=== PATIENT | female | born 1980 | race Caucasian/White ===

== ENCOUNTER 2019-03-09 17:36 | Emergency (ER) | payer OTHER ==
[2019-03-09] MEDS ORDERED: DEXAMETHASONE 10 MG/ML VIAL PO STA (19:02)
[2019-03-09] MEDS ORDERED: LIDOCAINE TOPICAL 4% 50 ML BOTTLE MM STA (19:02)
[2019-03-09] MEDS ORDERED: MAG HYDROX/AL HYDROX/SIMETH 30 ML UDC PO STA (19:02)
[2019-03-09] MEDS ORDERED: CHERRY SYRUP 10 ML UDC PO ONE (19:02)
--- NOTE | 2019-03-09 19:05 | ED Physician Documentation ---
History of Present Illness - Stated complaint Stated Complaint: V/MOUTH INFLAMMATION - Chief complaint Chief Complaint: General - History obtained from History obtained from: Patient - History of Present Illness Timing: Other (Starting about 5 days ago she had vomiting and stomach cramping. On that day she had a fever. That has since defervesced but she feels feels like the top of her mouth and throat is swollen is having difficulty eating and drinking because of it. She is fatigued but denies fevers or chills at this point. She is congested but no cough. No possibility of .) Review of Systems Constitutional: reports: Myalgias, Fatigue. 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: Breast reduction - Present Medications Home Medications: Ambulatory Orders Medication Instructions Recorded Confirmed Hydrocodone/Acetaminophen 1 - 2 each PO Q6H PRN #10 tablet 03/09/19 [Hydrocodon-Acetaminophen 5-325] predniSONE [Deltasone] 60 mg PO DAILY 5 Days tablet 03/09/19 - Allergies Allergies/Adverse Reactions: Allergies Allergy/AdvReac Type Severity Reaction Status Date / Time codeine AdvReac Hallucinati Verified 03/09/19 17:56 ons - Social History Does the pt smoke?: Yes Smoking Status: Current every day smoker Does the pt drink ETOH?: Yes Does the pt have substance abuse?: No - Immunizations Immunizations are current?: Yes PD ED PE NORMAL - Vitals Vital signs reviewed: Yes - General General: Alert and oriented X 3, No acute distress - HEENT HEENT: PERRL, EOMI, Ears normal - Neck Neck: Other (She has tonsillar swelling and mild redness of the palate. No obvious angioedema. No exudates. She does have significant anterior cervical adenopathy bilaterally.) - Cardiac Cardiac: RRR, No murmur - Respiratory Respiratory: No respiratory distress, Clear bilaterally - Abdomen Abdomen: Non tender - Derm Derm: No rash - Neuro Neuro: Alert and oriented X 3, Normal speech Results - Vitals Vitals: Vital Signs - 24 hr 03/09/19 17:49 Temperature 36.8 C Heart Rate 82 Respiratory 16 Rate Blood Pressure 116/80 O2 Saturation 100 Oxygen O2 Source Room air - Labs Labs: Laboratory Tests 03/09/19 03/09/19 03/09/19 19:16 19:17 19:17 WBC 7.8 RBC 4.06 L Hgb 11.9 L Hct 36.9 L MCV 90.9 MCH 29.3 MCHC 32.2 RDW 13.4 Plt Count 220 MPV 9.0 Neut # (Auto) 4.8 Lymph # (Auto) 2.0 [place] # (Auto) 0.8 Eos # (Auto) 0.2 Baso # (Auto) 0.1 Absolute Nucleated RBC 0.00 Nucleated RBC % 0.0 Sodium Potassium Chloride Carbon Dioxide Anion Gap BUN Creatinine Estimated GFR (MDRD) Glucose Calcium Total Bilirubin AST ALT Alkaline Phosphatase Total Protein Albumin Globulin Albumin/Globulin Ratio Lipase Infectious [place] Assay NEGATIVE Group A Strep Rapid Negative 03/09/19 19:17 WBC RBC Hgb Hct MCV MCH MCHC RDW Plt Count MPV Neut # (Auto) Lymph # (Auto) [place] # (Auto) Eos # (Auto) Baso # (Auto) Absolute Nucleated RBC Nucleated RBC % Sodium 141 Potassium 4.3 Chloride 106 Carbon Dioxide 24 Anion Gap 11.0 BUN 12 Creatinine 0.9 Estimated GFR (MDRD) 70 L Glucose 99 Calcium 9.1 Total Bilirubin 0.4 AST 17 ALT 17 Alkaline Phosphatase 72 Total Protein 7.0 Albumin 3.9 Globulin 3.1 Albumin/Globulin Ratio 1.3 Lipase 34 Infectious [place] Assay Group A Strep Rapid PD MEDICAL DECISION MAKING - ED course ED course: This is a 38-year-old woman who presents with viral pharyngitis, strep and mono screens were negative and she was feeling better after a GI cocktail. There is no evidence of airway compromise. No evidence of peritonsillar abscess. Departure - Departure Disposition: 01 Home, Self Care Clinical Impression: Viral pharyngitis Condition: Good Record reviewed to determine appropriate education?: Yes Instructions: ED Pharyngitis Viral Report Pending Prescriptions: Hydrocodone/Acetaminophen [Hydrocodon-Acetaminophen 5-325] 1 - 2 each PO Q6H PRN #10 tablet PRN Reason: pain predniSONE [Deltasone] 60 mg PO DAILY 5 Days tablet Comments: I suspect she will be better over the next couple of days, return for any new or worsening symptoms or if not better in that timeframe, or follow-up with your doctor in a few days if not better.
[2019-03-09 19:25] LABS: BASOPHILS # (AUTO) 0.1 10^3/uL (0.0-0.1); BASOPHILS % (AUTO) 0.6 %; EOSINOPHILS # (AUTO) 0.2 10^3/uL (0.0-0.7); EOSINOPHILS % (AUTO) 2.3 %; HGB - HEMOGLOBIN 11.9 g/dL (12.0-16.0); MEAN CORPUSCULAR HEMOGLOBIN 29.3 pg (27.0-31.0); MEAN CORPUSCULAR HGB CONC 32.2 g/dL (32.0-36.0); MEAN CORPUSCULAR VOLUME 90.9 fL (81.0-99.0); MONOCYTES # (AUTO) 0.8 10^3/uL (0.0-1.0); MONOCYTES % (AUTO) 10.2 %; NEUTROPHILS # (AUTO) 4.8 10^3/uL (1.5-6.6); NEUTROPHILS % (AUTO) 61.4 %; PLT - PLATELET COUNT 220 10^3/uL (130-450); RED BLOOD COUNT 4.06 10^6/uL (4.20-5.40); RED CELL DISTRIBUTION WIDTH 13.4 % (12.0-15.0); WHITE BLOOD COUNT 7.8 x10^3/uL (4.8-10.8)
[2019-03-09 19:44] LABS: ALBUMIN 3.9 g/dL (3.2-5.5); ALBUMIN/GLOBULIN RATIO 1.3 (1.0-2.2); BILIRUBIN,TOTAL 0.4 mg/dL (0.2-1.0); CALCIUM 9.1 mg/dL (8.5-10.3); CREATININE 0.9 mg/dL (0.4-1.0)
[2019-03-09] MEDS ORDERED: HYDROcod/ACET 5/325 Prepack 4 PO STA (20:12)
[2019-03-09 20:16] VITALS: BP 117/83
== END 2019-03-09 20:21 | disposition home or self-care (01) ==
LOC: ED 17:36
DX: J02.8 Acute pharyngitis due to other specified organisms (principal); F17.200 Nicotine dependence, unspecified, uncomplicated
CPT/HCPCS: 36415; 80053; 83690; 85025; 86308; 87070; 87430; 99283; 99284; A9270

== ENCOUNTER 2019-11-23 15:48 | Outpatient (CLI) | payer OTHER | END 2019-11-23 15:49 | disposition home or self-care (01) | LOC: COV 15:48 | PROVIDERS: ATTEND Family Medicine | DX: R50.9 Fever, unspecified (principal); R05 Cough; R06.2 Wheezing; M79.10 Myalgia, unspecified site | CPT/HCPCS: 81599 ==

== ENCOUNTER 2020-05-22 09:49 | Emergency (ER) | payer MEDICAID ==
--- NOTE | 2020-05-22 10:39 | ED Physician Documentation ---
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 She reports 3 days of heavy bleeding and cramping followed by 4 days of lessening symptoms. She had an appointment to go in and see WATER PURIFIER and this appointment was rescheduled for time that she could not go. She is come today after calling her clinic this morning when her menses began and she has been having heavy bleeding going through about 1 pad per hour. She states that she does get lightheaded and dizzy with her menses and this usually resolves and she is not having pain or bleeding between menses. 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: Tubal ligation, Breast reduction - Present Medications Home Medications: Ambulatory Orders Medication Instructions Recorded Confirmed Hydrocodone/Acetaminophen 1 - 2 each PO Q6H PRN #10 tablet 03/09/19 [Hydrocodon-Acetaminophen 5-325] predniSONE [Deltasone] 60 mg PO DAILY 5 Days tablet 03/09/19 Sulfamethox/Trimeth 800/160 1 each PO BID #10 tablet 05/22/20 [Bactrim Ds] - Allergies Allergies/Adverse Reactions: Allergies Allergy/AdvReac Type Severity Reaction Status Date / Time codeine AdvReac Hallucinati Verified 05/22/20 09:57 ons - Social History Does the pt smoke?: Yes Smoking Status: Current every day smoker Does the pt drink ETOH?: No Does the pt have substance abuse?: No Substance Use and Type: Marijuana - Immunizations Immunizations are current?: Yes PD ED PE NORMAL - Vitals Vital signs reviewed: Yes (normal ) - General General: Alert and oriented X 3, No acute distress, Well developed/nourished - HEENT HEENT: Atraumatic, PERRL, EOMI - Neck Neck: Supple, no meningeal sign, No bony TTP - Cardiac Cardiac: RRR, No murmur - Respiratory Respiratory: No respiratory distress, Clear bilaterally - Abdomen Abdomen: Soft, Non tender - Back Back: No CVA TTP, No spinal TTP - Derm Derm: Normal color, Warm and dry, No rash - Extremities Extremities: No deformity, No edema - Neuro Neuro: Alert and oriented X 3, No motor deficit, No sensory deficit, Normal speech Eye Opening: Spontaneous Motor: Obeys Commands Verbal: Oriented GCS Score: 15 - Psych Psych: Normal mood, Normal affect Results - Vitals Vitals: Vital Signs - 24 hr 05/22/20 05/22/20 09:54 10:18 Temperature 36.5 C Heart Rate 85 71 Respiratory 16 16 Rate Blood Pressure 115/72 112/79 O2 Saturation 100 100 Oxygen O2 Source Room air - Labs Labs: Laboratory Tests 05/22/20 05/22/20 05/22/20 10:51 10:51 11:05 WBC 5.2 RBC 3.93 L Hgb 10.0 L Hct 32.8 L MCV 83.5 MCH 25.4 L MCHC 30.5 L RDW 15.9 H Plt Count 237 MPV 8.8 Neut # (Auto) 3.5 Lymph # (Auto) 1.1 L [place] # (Auto) 0.5 Eos # (Auto) 0.1 Baso # (Auto) 0.0 Absolute Nucleated RBC 0.00 Nucleated RBC % 0.0 Sodium 138 Potassium 3.8 Chloride 103 Carbon Dioxide 24 Anion Gap 11.0 BUN 10 Creatinine 0.9 Estimated GFR (MDRD) 69 L Glucose 105 H Calcium 8.7 Total Bilirubin 0.5 AST 12 ALT 11 Alkaline Phosphatase 59 Total Protein 7.2 Albumin 4.0 Globulin 3.2 Albumin/Globulin Ratio 1.3 Lipase 53 H Urine Color YELLOW Urine Clarity HAZY Urine pH 7.5 Ur Specific [place] 1.015 Urine Protein NEGATIVE Urine Glucose (UA) NEGATIVE Urine Ketones NEGATIVE Urine Occult Blood SMALL H Urine Nitrite POSITIVE H Urine Bilirubin NEGATIVE Urine Urobilinogen 0.2 (NORMAL) Ur Leukocyte Esterase MODERATE H Urine RBC 6-10 H Urine WBC >25 H Ur Squamous Epith Cells FEW Squamous Urine Bacteria Many H Urine Mucus Moderate Strands Ur Microscopic Review INDICATED Urine Culture Comments INDICATED Urine HCG, Qual NEGATIVE PD MEDICAL DECISION MAKING - ED course Complexity details: reviewed results, re-evaluated patient, considered differential, d/w patient ED course: 39-year-old female with dysfunctional uterine bleeding has excessive cramping and bleeding today and this is typical for her and she is found to be mildly anemic. I discussed findings with the patient and she will follow-up with WATER PURIFIER for further recommendations. Her urinalysis appears infected and we will start her on Septra for 5 days. Departure - Departure Disposition: 01 Home, Self Care Clinical Impression: Dysfunctional uterine bleeding UTI (urinary tract infection) Qualifiers: Urinary tract infection type: acute cystitis Hematuria presence: with hematuria Qualified Code(s): N30.01 - Acute cystitis with hematuria Condition: Stable Instructions: ED Bleed Irregular Vaginal, ED UTI Cystitis Female Follow-Up: MOIZ PALACIOS PA-C [Primary Care Provider] - Prescriptions: Sulfamethox/Trimeth 800/160 [Bactrim Ds] 1 each PO BID #10 tablet
[2020-05-22 10:58] LABS: BASOPHILS % (AUTO) 0.6 %; EOSINOPHILS # (AUTO) 0.1 10^3/uL (0.0-0.7); LYMPHOCYTES # (AUTO) 1.1 10^3/uL (1.5-3.5); LYMPHOCYTES % (AUTO) 21.7 %; MEAN CORPUSCULAR HEMOGLOBIN 25.4 pg (27.0-31.0); MEAN CORPUSCULAR HGB CONC 30.5 g/dL (32.0-36.0); MEAN CORPUSCULAR VOLUME 83.5 fL (81.0-99.0); MEAN PLATELET VOLUME 8.8 fL (7.9-10.8); MONOCYTES # (AUTO) 0.5 10^3/uL (0.0-1.0); NEUTROPHILS # (AUTO) 3.5 10^3/uL (1.5-6.6); NEUTROPHILS % (AUTO) 67.5 %; PLT - PLATELET COUNT 237 10^3/uL (130-450); RED BLOOD COUNT 3.93 10^6/uL (4.20-5.40); RED CELL DISTRIBUTION WIDTH 15.9 % (12.0-15.0); WHITE BLOOD COUNT 5.2 x10^3/uL (4.8-10.8)
[2020-05-22 11:09] LABS: ALBUMIN/GLOBULIN RATIO 1.3 (1.0-2.2); BILIRUBIN,TOTAL 0.5 mg/dL (0.2-1.0); CALCIUM 8.7 mg/dL (8.5-10.3); CREATININE 0.9 mg/dL (0.4-1.0); TOTAL PROTEIN 7.2 g/dL (6.7-8.2)
[2020-05-22 11:15] LABS: BILIRUBIN,URINE NEGATIVE (NEGATIVE); GLUCOSE, URINE (UA) NEGATIVE (NEGATIVE); KETONES,URINE (UA) NEGATIVE (NEGATIVE); LEUKOCYTE ESTERASE, URINE MODERATE (NEGATIVE); NITRITE,URINE POSITIVE (NEGATIVE); OCCULT BLOOD,URINE SMALL (NEGATIVE); PH,URINE 7.5 PH (5.0-7.5); PROTEIN,URINE NEGATIVE (NEGATIVE); UROBILINOGEN,URINE 0.2 (NORMAL) E.U./dL (NORMAL)
[2020-05-22 11:25] LABS: CLARITY,URINE HAZY (CLEAR); HCG UR QUAL NEGATIVE
[2020-05-22 11:26] LABS: BACTERIA,URINE Many /HPF (None Seen); MUCUS,URINE Moderate Strands; SQUAMOUS EPITHELIAL CELL,UR FEW Squamous (<= Few)
[2020-05-22 12:12] VITALS: BP 109/80
== END 2020-05-22 12:19 | disposition home or self-care (01) ==
LOC: ED 09:49
DX: N30.01 Acute cystitis with hematuria (principal); N93.8 Other specified abnormal uterine and vaginal bleeding; D64.9 Anemia, unspecified; F17.200 Nicotine dependence, unspecified, uncomplicated
CPT/HCPCS: 36415; 80053; 81001; 81003; 81025; 83690; 85025; 87077; 87086; 87181; 99283; 99284

== ENCOUNTER 2020-07-01 15:53 | Emergency (ER) | payer MEDICAID ==
--- NOTE | 2020-07-01 16:15 | ED Physician Documentation ---
History of Present Illness - Stated complaint Stated Complaint: FEMALE - Chief complaint Chief Complaint: General - History obtained from History obtained from: Patient - Additonal information Additional information: 39-year-old woman with 5 children at home status post remote tubal ligation. She was seen here for heavy menses in April, hemoglobin was 10. She had pyuria treated with sulfa, eventually grew E. coli. She had a fairly normal menses between now and then but over the last week and a half has been bleeding on and off increasingly heavy where today she was soaking a pad every 1/2 hour. Then she had some sort of clots or tissue come out and the bleeding has since slowed down but not completely subsided. 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, Breast reduction - Present Medications Home Medications: Ambulatory Orders Medication Instructions Recorded Confirmed Dextroamphetamine/Amphetamine 10 mg PO DAILY 07/01/20 07/01/20 [Adderall 10 mg Tablet] Diclofenac Sodium 75 mg PO DAILY 07/01/20 07/01/20 Tranexamic Acid 2 tab PO TID PRN #15 tablet 07/01/20 - Allergies Allergies/Adverse Reactions: Allergies Allergy/AdvReac Type Severity Reaction Status Date / Time codeine AdvReac Hallucinati Verified 07/01/20 16:23 ons - Social History Does the pt smoke?: Yes Smoking Status: Current every day smoker Does the pt drink ETOH?: No Does the pt have substance abuse?: No - Immunizations Immunizations are current?: Yes PD ED PE NORMAL - Vitals Vital signs reviewed: Yes - General General: Alert and oriented X 3, No acute distress - Abdomen Abdomen: Soft, Non tender - Derm Derm: No rash - Extremities Extremities: No edema, No calf tenderness / cord - Neuro Neuro: Alert and oriented X 3, Normal speech Results - Vitals Vitals: Vital Signs - 24 hr 07/01/20 07/01/20 07/01/20 15:57 18:02 20:23 Temperature 98.4 C H 36.6 C Heart Rate 90 88 91 Respiratory 18 16 14 Rate Blood Pressure 110/73 116/72 113/74 O2 Saturation 100 100 98 Oxygen O2 Source Room air - Labs Labs: Laboratory Tests 07/01/20 07/01/20 07/01/20 16:18 16:18 16:20 WBC 6.5 RBC 3.72 L Hgb 9.4 L Hct 30.9 L MCV 83.1 MCH 25.3 L MCHC 30.4 L RDW 15.3 H Plt Count 263 MPV 8.5 Neut # (Auto) 3.9 Lymph # (Auto) 2.0 [place] # (Auto) 0.5 Eos # (Auto) 0.1 Baso # (Auto) 0.1 Absolute Nucleated RBC 0.00 Nucleated RBC % 0.0 Sodium 138 Potassium 4.0 Chloride 104 Carbon Dioxide 23 Anion Gap 11.0 BUN 15 Creatinine 1.0 Estimated GFR (MDRD) 61 L Glucose 92 Calcium 9.0 Urine Color YELLOW Urine Clarity CLEAR Urine pH 6.0 Ur Specific [place] 1.025 Urine Protein NEGATIVE Urine Glucose (UA) NEGATIVE Urine Ketones 15 H Urine Occult Blood SMALL H Urine Nitrite NEGATIVE Urine Bilirubin NEGATIVE Urine Urobilinogen 0.2 (NORMAL) Ur Leukocyte Esterase NEGATIVE Urine RBC 0-5 Urine WBC 0-3 Ur Squamous Epith Cells FEW Squamous Urine Bacteria Few Urine Mucus Marked Strands Ur Microscopic Review INDICATED Urine Culture Comments NOT INDICATED Urine HCG, Qual NEGATIVE PD MEDICAL DECISION MAKING - ED course ED course: 39-year-old woman presents with dysfunctional uterine bleeding, H&H is dropped a bit since her last visit. Ultrasound shows fibroid uterus, left ovarian cyst. Case discussed by phone with Dr. Wood who recommends tranexamic acid 1300 mg 3 times daily for no more than 5 days as needed bleeding. Patient does not want to take hormonal control due to side effects. Discussed with her that she should follow-up in the office to consider IUD, leiomyomectomy or hysterectomy. Departure - Departure Disposition: Home, Self Care Clinical Impression: Dysfunctional uterine bleeding Fibroid, uterine Qualifiers: Uterine leiomyoma location: submucous Qualified Code(s): D25.0 - Submucous leiomyoma of uterus Condition: Good Record reviewed to determine appropriate education?: Yes Instructions: ED Bleed Irregular Vaginal, ED Fibroids Follow-Up: Esperanza Joya MD [Provider Admit Priv/Credential] - Prescriptions: Tranexamic Acid 2 tab PO TID PRN #15 tablet PRN Reason: bleeding Comments: Follow-up with Dr. Joya to discuss options, as we do not want you taking the tranexamic acid long-term. You can take it in the interim to help slow the bleeding. Return if worse.
[2020-07-01 16:23] LABS: BASOPHILS # (AUTO) 0.1 10^3/uL (0.0-0.1); BASOPHILS % (AUTO) 0.8 %; EOSINOPHILS # (AUTO) 0.1 10^3/uL (0.0-0.7); EOSINOPHILS % (AUTO) 0.9 %; HGB - HEMOGLOBIN 9.4 g/dL (12.0-16.0); MEAN CORPUSCULAR HEMOGLOBIN 25.3 pg (27.0-31.0); MEAN CORPUSCULAR HGB CONC 30.4 g/dL (32.0-36.0); MEAN CORPUSCULAR VOLUME 83.1 fL (81.0-99.0); MEAN PLATELET VOLUME 8.5 fL (7.9-10.8); MONOCYTES # (AUTO) 0.5 10^3/uL (0.0-1.0); MONOCYTES % (AUTO) 7.8 %; NEUTROPHILS # (AUTO) 3.9 10^3/uL (1.5-6.6); NEUTROPHILS % (AUTO) 60.2 %; PLT - PLATELET COUNT 263 10^3/uL (130-450); RED BLOOD COUNT 3.72 10^6/uL (4.20-5.40); RED CELL DISTRIBUTION WIDTH 15.3 % (12.0-15.0); WHITE BLOOD COUNT 6.5 x10^3/uL (4.8-10.8)
[2020-07-01 16:44] LABS: BILIRUBIN,URINE NEGATIVE (NEGATIVE); GLUCOSE, URINE (UA) NEGATIVE (NEGATIVE); KETONES,URINE (UA) 15 mg/dL (NEGATIVE); LEUKOCYTE ESTERASE, URINE NEGATIVE (NEGATIVE); NITRITE,URINE NEGATIVE (NEGATIVE); OCCULT BLOOD,URINE SMALL (NEGATIVE); PROTEIN,URINE NEGATIVE (NEGATIVE); UROBILINOGEN,URINE 0.2 (NORMAL) E.U./dL (NORMAL)
[2020-07-01 16:45] LABS: CLARITY,URINE CLEAR (CLEAR)
[2020-07-01 16:46] LABS: HCG UR QUAL NEGATIVE
[2020-07-01 16:56] LABS: BACTERIA,URINE Few /HPF (None Seen); MUCUS,URINE Marked Strands; RBC,URINE 0-5 /HPF (0-5); SQUAMOUS EPITHELIAL CELL,UR FEW Squamous (<= Few)
--- NOTE | 2020-07-01 20:05 | Ultrasound Report ---
PROCEDURE: Pelvic w/Transvag+Doppler Comp INDICATIONS: pelvic pain, R TECHNIQUE: Real-time scanning was performed of the pelvic organs, with image documentation. Additional endovagi nal scanning was necessary due to incomplete visualization of the adnexal and endometrial structures by transabdominal scanning. COMPARISON: None. FINDINGS: Transabdominal scanning: Limited scanning through the kidneys shows no hydronephrosis. No pathologi c free abdominal or pelvic fluid. Endovaginal scanning: Uterus: Uterus is anteverted measuring 9.5 x 5.8 x 6.4 cm. The endometrium measures 4.9 mm in combi jonah thickness. A 2 mm echogenic focus in the endometrium, probably caused desiccation. There is a 3. 2 x 2.5 x 3.0 cm submucosal fibroid in the right anterior uterine wall. Ovaries: Right ovary measures 3.0 x 2.2 x 2.7 cm. Left ovary measures 2.8 x 2.1 x 2.2 cm. There is a 1.7 cm simple cyst in the left ovary. IMPRESSION: 1. A 3.2 x 2.5 x 3.0 cm submucosal void in the right anterior uterine wall. 2. A 2 mm calcific focus in the endometrium, consistent with synechia. 3. A 1.7 cm simple cyst in the left ovary. Otherwise normal ovaries. Reviewed by: Niesha Cummings MD on 07/01/2020 8:04 PM PST Approved by: Niesha Cummings MD on 07/01/2020 8:04 PM PST Station ID: [id number]
[2020-07-01 20:24] VITALS: BP 113/74
== END 2020-07-01 20:33 | disposition home or self-care (01) ==
LOC: ED 15:53
DX: D25.0 Submucous leiomyoma of uterus (principal); N93.8 Other specified abnormal uterine and vaginal bleeding; N83.292 Other ovarian cyst, left side; F17.200 Nicotine dependence, unspecified, uncomplicated
CPT/HCPCS: 36415; 80048; 81001; 81003; 81025; 85025; 87086; 93975; 99284

== ENCOUNTER 2020-12-01 16:06 | Outpatient (CLI) | payer MEDICAID | END 2020-12-01 16:07 | disposition critical access hospital (66) | LOC: EMS 16:06 | DX: R07.9 Chest pain, unspecified (principal) | CPT/HCPCS: A0425; A0427; A0999 ==

== ENCOUNTER 2020-12-01 16:26 | Emergency (ER) | payer MEDICAID ==
[2020-12-01] MEDS ORDERED: SODIUM CHLORIDE 0.9% 1,000 ML IV STA (16:53)
[2020-12-01 17:09] LABS: BASOPHILS % (AUTO) 0.2 %; EOSINOPHILS % (AUTO) 0.4 %; HCT - HEMATOCRIT 30.8 % (37.0-47.0); HGB - HEMOGLOBIN 9.1 g/dL (12.0-16.0); LYMPHOCYTES # (AUTO) 0.7 10^3/uL (1.5-3.5); LYMPHOCYTES % (AUTO) 13.5 %; MEAN CORPUSCULAR HEMOGLOBIN 22.4 pg (27.0-31.0); MEAN CORPUSCULAR HGB CONC 29.5 g/dL (32.0-36.0); MEAN CORPUSCULAR VOLUME 75.7 fL (81.0-99.0); MEAN PLATELET VOLUME 9.3 fL (7.9-10.8); MONOCYTES # (AUTO) 0.5 10^3/uL (0.0-1.0); MONOCYTES % (AUTO) 9.6 %; NEUTROPHILS # (AUTO) 3.9 10^3/uL (1.5-6.6); NEUTROPHILS % (AUTO) 75.9 %; PLT - PLATELET COUNT 199 10^3/uL (130-450); RED BLOOD COUNT 4.07 10^6/uL (4.20-5.40); RED CELL DISTRIBUTION WIDTH 15.9 % (12.0-15.0); WHITE BLOOD COUNT 5.1 x10^3/uL (4.8-10.8)
--- NOTE | 2020-12-01 17:30 | XRAY Report ---
PROCEDURE: Chest 1 View X-Ray INDICATIONS: Chest Pain TECHNIQUE: One view of the chest was acquired. COMPARISON: None FINDINGS: Surgical changes and devices: Mammoplasty implants are incidentally noted. Lungs and pleura: No pleural effusions or pneumothorax. Lungs are clear. Mediastinum: Mediastinal contours appear normal. Heart size is normal. Bones and chest wall: No suspicious bony lesions. Mild dextroconvex scoliotic curvature is seen. Ov erlying soft tissues appear unremarkable. IMPRESSION: No acute cardiopulmonary process is seen. Reviewed by: Paul Smith MD on 12/01/2020 4:29 PM JENIFER Approved by: Paul Smith MD on 12/01/2020 4:29 PM JENIFER Station ID: [id number]
[2020-12-01 17:42] LABS: ALBUMIN 3.7 g/dL (3.2-5.5); ALBUMIN/GLOBULIN RATIO 1.3 (1.0-2.2); BILIRUBIN,TOTAL 0.4 mg/dL (0.2-1.0); CALCIUM 8.4 mg/dL (8.5-10.3); CREATININE 0.8 mg/dL (0.4-1.0); POTASSIUM 3.4 mmol/L (3.5-5.0); TOTAL PROTEIN 6.6 g/dL (6.7-8.2)
--- NOTE | 2020-12-01 18:08 | ED Physician Documentation ---
History of Present Illness - Stated complaint Stated Complaint: CHEST PX - Chief complaint Chief Complaint: Cardiac - History obtained from History obtained from: Patient - Additonal information Additional information: 40-year-old woman with past medical history of adhd on adderal, +smoker, family history of [place] in her father at the age of 62, p/w substernal chest pain 8 out of 10 beginning about an hour prior to arrival while sitting on the couch. Sharp, intermittent, resolving when EMS gave her aspirin on the way over here. Patient also states that she has had fever for the past 24 hours with T-max at home of 100, fatigue, body aches, and nasal congestion. She denies cough, shortness of breath, nausea vomiting abdominal or back pain. Denies sick contacts, travel, leg swelling, prior history of clots, estrogen use or surgeries. 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, Breast reduction - Present Medications Home Medications: Ambulatory Orders Medication Instructions Recorded Confirmed Dextroamphetamine/Amphetamine 10 mg PO DAILY 07/01/20 12/01/20 [Adderall 10 mg Tablet] - Allergies Allergies/Adverse Reactions: Allergies Allergy/AdvReac Type Severity Reaction Status Date / Time Penicillins Allergy Hives Verified 12/01/20 16:40 codeine AdvReac Hallucinati Verified 07/01/20 16:23 ons - Social History Does the pt smoke?: Yes Smoking Status: Current every day smoker Does the pt drink ETOH?: No Does the pt have substance abuse?: No - Immunizations Immunizations are current?: Yes PD ED PE NORMAL - Vitals Vital signs reviewed: Yes - General General: Alert and oriented X 3, No acute distress, Well developed/nourished - HEENT HEENT: Atraumatic, PERRL, EOMI - Neck Neck: Supple, no meningeal sign - Cardiac Cardiac: RRR - Respiratory Respiratory: No respiratory distress, Clear bilaterally - Abdomen Abdomen: Non tender, Non distended - Derm Derm: Normal color - Extremities Extremities: No deformity, No edema - Neuro Neuro: Alert and oriented X 3 - Psych Psych: Normal mood, Normal affect Results - Vitals Vitals: Vital Signs - 24 hr 12/01/20 12/01/20 16:30 18:04 Temperature 37.9 C Heart Rate 89 83 Respiratory 13 20 Rate Blood Pressure 125/74 95/60 O2 Saturation 100 100 Oxygen O2 Source Room air - Labs Labs: Laboratory Tests 12/01/20 12/01/20 12/01/20 17:00 17:00 17:00 WBC 5.1 RBC 4.07 L Hgb 9.1 L Hct 30.8 L MCV 75.7 L MCH 22.4 L MCHC 29.5 L RDW 15.9 H Plt Count 199 MPV 9.3 Neut # (Auto) 3.9 Lymph # (Auto) 0.7 L [place] # (Auto) 0.5 Eos # (Auto) 0.0 Baso # (Auto) 0.0 Absolute Nucleated RBC 0.00 Nucleated RBC % 0.0 D-Dimer 567.1 H Sodium 136 Potassium 3.4 L Chloride 105 Carbon Dioxide 23 Anion Gap 8.0 BUN 9 Creatinine 0.8 Estimated GFR (MDRD) 79 L Glucose 99 Calcium 8.4 L Total Bilirubin 0.4 AST 12 ALT 10 Alkaline Phosphatase 68 Troponin I High Sens Total Protein 6.6 L Albumin 3.7 Globulin 2.9 Albumin/Globulin Ratio 1.3 Lipase 29 12/01/20 17:00 WBC RBC Hgb Hct MCV MCH MCHC RDW Plt Count MPV Neut # (Auto) Lymph # (Auto) [place] # (Auto) Eos # (Auto) Baso # (Auto) Absolute Nucleated RBC Nucleated RBC % D-Dimer Sodium Potassium Chloride Carbon Dioxide Anion Gap BUN Creatinine Estimated GFR (MDRD) Glucose Calcium Total Bilirubin AST ALT Alkaline Phosphatase Troponin I High Sens 3.0 Total Protein Albumin Globulin Albumin/Globulin Ratio Lipase PD MEDICAL DECISION MAKING - ED course ED course: Initial lab work stable from previous. Chest x-ray and EKG also noncontributory. She had an elevated D- dimer so we will have to do a CT angio to evaluate for pulmonary embolism. Signed out to Dr. Lord pending CTA results.
[2020-12-01] MEDS ORDERED: IOPAMIDOL-300 100 ML VIAL ONE (18:22)
[2020-12-01] MEDS ORDERED: IOPAMIDOL-300 100 ML VIAL IVP ONE (20:00)
--- NOTE | 2020-12-01 20:11 | CT Report ---
PROCEDURE: ANGIO CHEST W INDICATIONS: elevated dimer, chest pain CONTRAST: IV CONTRAST: Isovue 300 ml: 100 PO CONTRAST: *NO PO CONTRAST TECHNIQUE: After the administration of intravenous contrast, 2 mm thick sections acquired from the pulmonary api jammie to the posterior costophrenic angles. 3-dimensional maximum intensity projection (MIP) coronal a nd sagittal reformats were then acquired through the thorax. For radiation dose reduction, the follow ing was used: automated exposure control, adjustment of mA and/or kV according to patient size. COMPARISON: Chest x-ray 12/01/2020. FINDINGS: Image quality: Excellent. Pulmonary arteries: Pulmonary arteries are normal in size, and demonstrate no intraluminal filling d efects to suggest central pulmonary embolism. Lungs and pleura: There is mild dependent atelectasis bilaterally. No acute consolidation. No pleural effusions or pneumothorax. Central and peripheral airways are patent. Mediastinum: Heart size is normal, without pericardial effusion. No mediastinal or hilar adenopathy . Thoracic aorta is normal in caliber and enhancement. The visualized aorta demonstrates no intimal flaps to suggest dissection. Esophagus is normal in caliber, without hiatal hernia. Bones and chest wall: No suspicious bony lesions. Ribs and thoracic spine appear intact throughout. The thyroid is normal. No axillary or supraclavicular adenopathy. Bilateral breast implants are pa rtially visualized. No definite evidence of extracapsular implant rupture. There are likely radial fo lds within the right implant. Abdomen: Visualized upper abdomen demonstrates hyperattenuating mass lesions within the right hepati c lobe in segment 7 measuring up to 3.0 x 2.5 cm on series 5 image 138 and 4.7 x 2.8 cm posteriorly o n series 5 image 139. More anteriorly, a smaller hypoattenuating lesion is demonstrated on series 5 i mage 150 measuring up to 1.1 x 1.1 cm. The findings are incompletely characterized on the current rodolfo dy. IMPRESSION: 1. No evidence of pulmonary embolism. 2. No acute airspace consolidation. 3. Multiple hypoattenuating mass lesions in the liver are incompletely characterized on the current s tudy. Recommend follow-up evaluation with a nonemergent liver protocol MRI. Reviewed by: Chano Foreman MD on 12/01/2020 8:10 PM PDT Approved by: Chano Foreman MD on 12/01/2020 8:10 PM PDT Station ID: [id number]
--- NOTE | 2020-12-01 20:43 | ED Physician Documentation ---
PD HPI CHEST PAIN - Stated complaint Stated Complaint: CHEST PX - Chief complaint Chief Complaint: Cardiac - History obtained from History obtained from: Patient - History of Present Illness Timing - onset: Today Timing - onset during: Rest Timing - duration: Minutes Timing - details: Abrupt onset, Now resolved Quality: Sharp, Pain Location: Substernal, Right chest Radiation: Back Improved by: Rest, Nitro, ASA Worsened by: Inspiration, Movement, Palpation Associated symptoms: Shortness of air. No: Diaphoresis, Nausea, Vomiting, General Weakness, Palpitations, Cough Similar symptoms before: No diagnosis Recently seen: Not recently seen - Additional information Additional information: Appears well 40-year-old female with a history of ADHD was sitting on her couch today when she developed acute right substernal chest pain radiating to her back. She has had these episodes previously they usually resolve in a short period of time and today this was a much harder pain and did not resolve. She called the ambulance in route to the hospital her symptoms improved. She was worked up by Dr. Henry here in the emergency department including electrocardiogram blood work a thorough history and physical examination and a CTA of the chest. The findings were negative for coronary disease or pulmonary embolism but the CT scan does show some abnormality to the liver that will require follow-up with MRI. PD PAST MEDICAL HISTORY - Past Medical History Past Medical History: Yes Psych: ADD/ADHD - Past Surgical History Past Surgical History: Yes /[employer]ESS[employer]: Tubal ligation, Breast reduction - Present Medications Home Medications: Ambulatory Orders Medication Instructions Recorded Confirmed Dextroamphetamine/Amphetamine 10 mg PO DAILY 07/01/20 12/01/20 [Adderall 10 mg Tablet] - Allergies Allergies/Adverse Reactions: Allergies Allergy/AdvReac Type Severity Reaction Status Date / Time Penicillins Allergy Hives Verified 12/01/20 16:40 codeine AdvReac Hallucinati Verified 07/01/20 16:23 ons - Social History Does the pt smoke?: Yes Smoking Status: Current every day smoker Does the pt drink ETOH?: No Does the pt have substance abuse?: No - Immunizations Immunizations are current?: Yes - POLST Patient has POLST: No PD ED PE NORMAL - Vitals Vital signs reviewed: Yes (normal ) - General General: Alert and oriented X 3, No acute distress, Well developed/nourished - HEENT HEENT: Atraumatic, PERRL, EOMI - Respiratory Respiratory: No respiratory distress, Other (There is chest wall tenderness to palpation of the right costo-sternal angle that reproduces the pain the patinet is having. ) - Derm Derm: Normal color, Warm and dry, No rash - Extremities Extremities: No deformity, No edema - Neuro Neuro: Alert and oriented X 3, imaging services director 2-12 intact, No motor deficit, No sensory deficit, Normal speech Eye Opening: Spontaneous Motor: Obeys Commands Verbal: Oriented GCS Score: 15 - Psych Psych: Normal mood, Normal affect Results - Vitals Vitals: Vital Signs - 24 hr 12/01/20 12/01/20 12/01/20 16:30 18:04 19:19 Temperature 37.9 C 37.2 C Heart Rate 89 83 90 Respiratory 13 20 18 Rate Blood Pressure 125/74 95/60 109/63 O2 Saturation 100 100 100 12/01/20 12/01/20 12/01/20 19:44 20:37 20:58 Temperature 36.6 C 38 C H Heart Rate 93 97 88 Respiratory 22 15 20 Rate Blood Pressure 119/84 H 109/74 109/78 O2 Saturation 100 100 99 Oxygen O2 Source Room air - EKG (time done) 1631 Rate: Rate (enter#) (90) Rhythm: NSR Ischemia: Normal ST segments Compare to prior EKG: Old EKG unavailable Computer interpretation: Agree with computer - Labs Labs: Laboratory Tests 12/01/20 12/01/20 12/01/20 17:00 17:00 17:00 WBC 5.1 RBC 4.07 L Hgb 9.1 L Hct 30.8 L MCV 75.7 L MCH 22.4 L MCHC 29.5 L RDW 15.9 H Plt Count 199 MPV 9.3 Neut # (Auto) 3.9 Lymph # (Auto) 0.7 L [place] # (Auto) 0.5 Eos # (Auto) 0.0 Baso # (Auto) 0.0 Absolute Nucleated RBC 0.00 Nucleated RBC % 0.0 D-Dimer 567.1 H Sodium 136 Potassium 3.4 L Chloride 105 Carbon Dioxide 23 Anion Gap 8.0 BUN 9 Creatinine 0.8 Estimated GFR (MDRD) 79 L Glucose 99 Calcium 8.4 L Total Bilirubin 0.4 AST 12 ALT 10 Alkaline Phosphatase 68 Troponin I High Sens Total Protein 6.6 L Albumin 3.7 Globulin 2.9 Albumin/Globulin Ratio 1.3 Lipase 29 12/01/20 17:00 WBC RBC Hgb Hct MCV MCH MCHC RDW Plt Count MPV Neut # (Auto) Lymph # (Auto) [place] # (Auto) Eos # (Auto) Baso # (Auto) Absolute Nucleated RBC Nucleated RBC % D-Dimer Sodium Potassium Chloride Carbon Dioxide Anion Gap BUN Creatinine Estimated GFR (MDRD) Glucose Calcium Total Bilirubin AST ALT Alkaline Phosphatase Troponin I High Sens 3.0 Total Protein Albumin Globulin Albumin/Globulin Ratio Lipase - Rads (name of study) CTA chest Radiology: Prelim report reviewed (Impression 1. No evidence of pulmonary embolism. No acute airspace consolidation. Multiple hypoattenuating mass lesions in the liver are incompletely characterized on the current study. Recommend follow-up evaluation with a nonemergent liver protocol MRI.), EMP read indepedently, See rad report PD MEDICAL DECISION MAKING - ED course Complexity details: considered differential, d/w patient ED course: 40-year-old female with a atypical chest pain does not appear to have coronary disease she does have tenderness to the right side of the chest wall where the pain was in her pain is mostly resolved now. She did not require any specific form of treatment. She does have abnormality to her CTA that will require a follow-up MR liver protocol. This information was shared with the patient and she is diagnosed with costochondritis. Departure - Departure Disposition: 01 Home, Self Care Clinical Impression: Costochondritis, acute Condition: Stable Instructions: ED Chest Pain Costochondritis Follow-Up: MOIZ MCELROY PA-C [Primary Care Provider] - Comments: Sia today here in the emergency department it looks like the pain you are having in your chest was related to the joint between the sternum and ribs. This is a generally benign process. There were findings on the CT scan of your chest that involve the liver. Follow-up with Marko Mcelroy about this finding to get an MRI liver protocol done. There were no other concerning findings on your blood work or work-up. Discharge Date/Time: 12/01/20 21:00
[2020-12-01 20:58] VITALS: BP 109/78
== END 2020-12-01 21:00 | disposition home or self-care (01) ==
LOC: ED 16:26
DX: M94.0 Chondrocostal junction syndrome [Tietze] (principal); F17.200 Nicotine dependence, unspecified, uncomplicated; Z20.822 Contact with and (suspected) exposure to COVID-19
CPT/HCPCS: 36415; 71045; 71275; 80053; 83690; 84484; 85025; 85379; 87635; 93005; 96360; 99284; Q9967